=== PATIENT | male | born 1955 | race Caucasian/White ===

== ENCOUNTER 2018-12-03 07:00 | Day surgery (SDC) | payer OTHER ==
[~2018-12-03] VITALS: Ht 182.9 cm; Wt 97.5 kg
--- NOTE | 2018-12-03 09:02 | NUR ---
12/03/18 0902 Mago Adams 0856- PT ARRIVES TO PACU ALERT AND ORIENTED. PT REPORTS NO NAUSEA OR PAIN. RESP EVEN AND UNLABORED. OXYGEN SAT HIGH 90'S ON 2L VIA NC. 0902- OXYGEN TITRATED OFF. PT PASSING FLATUS.
--- NOTE | 2018-12-03 09:16 | NUR ---
PT ALERT, ORIENTED AND SUPPORTED BY HIS . PT SEEMED TO DEAL WITH PREP APPROPRIATELY.PT THANKED ME FOR COMING BY-EXTENDED A BLESSING AND WILL BE AVAILABLAE NEEDED
--- NOTE | 2018-12-04 14:35 | OR ---
[facility] [address], [place] [address] Signed DATE OF OPERATION: 12/03/2018 SURGEON: Joyce Gomez MD PREOPERATIVE DIAGNOSIS: Colon screening. POSTOPERATIVE DIAGNOSIS: Polyps x4. PROCEDURE: Total colonoscopy to cecum with cold morcellation polypectomy x3 and cold snare polypectomy x1. ANESTHESIA: Intravenous sedation, fentanyl 100 mcg, Versed 7 mg. INDICATION: This 63-year-old white man is a patient of Dr. Corrigan and known to me from the past. He last underwent screening colonoscopy in 2006. Colonoscopy at that time was normal. He has no symptoms of bleeding, diarrhea, or constipation, and no family history of colon cancer. He is admitted at this time to undergo colonoscopy. He understands the risks of bleeding, infection, and perforation. FINDINGS: The prep was excellent. Complete colonoscopy was undertaken to the cecum without question. Appendix and ileocecal valve were well identified. There was a small polyp of the cecum, which was excised with cold morcellation technique. Additionally, another polyp at the splenic flexure, another in the mid descending, and another in the sigmoid, all excised. The largest, which was still relatively small was in the sigmoid and was excised with cold snare polypectomy technique. The others were with cold morcellation technique. DESCRIPTION OF PROCEDURE: The patient was brought to the endoscopy suite and placed in lateral decubitus position, given intravenous sedation to the point of slurred speech and nystagmus. Digital rectal examination was normal. An Olympus video colonoscope was passed in the rectum and manipulated throughout the colon ultimately intubating the cecum itself. The ileocecal valve and appendiceal Electronically Signed By: JOYCE GOMEZ MD 12/04/18 1435 PATIENT NAME: KEKE YO OPERATIVE REPORT DATE OF : 53 REPORT #: [id number] PHYSICIAN: JOYCE GOMEZ MD PCP: ROMEL CORRIGAN MD REPORT IS CONFIDENTIAL AND NOT TO BE RELEASED WITHOUT AUTHORIZATION [facility] [address], [place] [address] Signed orifice were normal. A small polyp was noted at the cecum, was excised with cold morcellation technique. The scope was carefully withdrawn and examination throughout showed no sign of abnormality until the splenic flexure where another small polyp was noted. This may have been hyperplastic. It was excised with cold morcellation technique as well. Further withdrawal of scope showed a small polyp in the mid descending colon. This was excised with cold morcellation technique. Finally, at the 20 cm augusto, was a somewhat larger polyp, more likely adenomatous. Narrow band imaging showed this to be likely. This was excised with cold snare technique. Further withdrawal of scope showed no other abnormality. Retroflexed view of the rectum was normal. Scope was removed. The patient was taken to recovery room in good condition. CONCLUDING DIAGNOSIS: Polyps x4. PLAN: If adenomas were identified, repeat colonoscopy in 3 years. If they are all hyperplastic, 7 years. Maintain high-fiber diet otherwise. He will return to the ongoing care of Dr. Corrigan. MD TAMMY Lopez/GITA /[id number] cc: Romel Corrigan MD Copies: ROMEL CORRIGAN MD ~ Electronically Signed By: JOYCE GOMEZ MD 12/04/18 1435 PATIENT NAME: SANAZKEKE OPERATIVE REPORT DATE OF : 53 REPORT #: [id number] PHYSICIAN: JOYCE GOMEZ MD PCP: ROMEL CORRIGAN MD REPORT IS CONFIDENTIAL AND NOT TO BE RELEASED WITHOUT AUTHORIZATION
--- NOTE | 2018-12-05 16:03 | PATH ---
[facility] [address], [place] [address] Signed SPECIMEN(S): A CECAL POLYP SPECIMEN(S): B SPLENIC FLEXURE POLYP SPECIMEN(S): C DESCENDING POLYP AT 40 CM SPECIMEN(S): D COLON POLYP AT 15 CM SPECIMEN SOURCE: A. CECAL POLYP B. SPLENIC FLEXURE POLYP C. DESCENDING POLYP AT 40 CM D. COLON POLYP AT 15 CM CLINICAL HISTORY: Preop: Screening. Postop: Polyps x4. MICROSCOPIC DESCRIPTION: A: There is a single old appearing caseated granuloma in the submucosa. Stains for acid fast bacilli (AFB) and GMS are obtained, along with appropriately positive controls, and are negative for the presence of AFB and fungal elements respectively. The biopsy is otherwise unremarkable. No adenomatous or hyperplastic change is seen. B, C, D. Histologic sections of all submitted blocks are examined by light microscopy. These findings, together with the gross examination, support the pathologic diagnosis. FINAL PATHOLOGIC DIAGNOSIS: A. Mucosa, cecum, biopsy: - Submucosal caseated granuloma (See comment). - Negative for AFB and fungal elements by stain. - No other [id number] pathologic diagnosis. B. Mucosa, colon, splenic flexure, biopsy: - Tubular adenoma. C. Mucosa, descending colon at 40 cm, biopsy: - Tubular adenoma. D. Mucosa, colon at 15 cm, biopsy: - Tubular adenoma. COMMENT: A No obvious etiology for the granuloma is seen here. Correlation with history and other clinical factors suggested. LJA:[id number]:[id number] GROSS DESCRIPTION: PATIENT NAME: KEKE YO PATHOLOGY DATE OF : 53 REPORT #: [id number] PHYSICIAN: ENEIDA PATHOLOGY PCP: ROMEL FLORES MD REPORT IS CONFIDENTIAL AND NOT TO BE RELEASED WITHOUT AUTHORIZATION [facility] [address], [place] [address] Signed Four specimens are received in four containers, labeled "RL." A. The specimen, labeled "RL, cecal polyp," is received in formalin and consists of a single 0.2 cm ramso fragment. Specimen is entirely submitted in cassette (A1). B. The specimen, labeled "RL, splenic flexure polyp," is received in formalin and consists of two, 0.2 and 0.3 cm ramos-brown tissue fragments. Specimen is entirely submitted in cassette (B1). C. The specimen, labeled "RL, left colon polyp at 40 cm," is received in formalin and consists of two ramos tissue fragments both measuring 0.2 cm. Specimen is entirely submitted in cassette (C1). D. The specimen, labeled "RL, colon polyp at 15 cm," is received in formalin and consists of a single 0.2 cm ramos-brown polypoid fragment. Specimen is entirely submitted in cassette (D1). AM (under the direct supervision of a pathologist) The Gross Description was prepared using a voice recognition system. The report was reviewed for accuracy; however, sound-alike word errors, addition and/or deletions may occur. If there is any question about this report, please contact Client Services. PERFORMING LABORATORY: The technical component was performed by [employer], [address] [place] [id number] (Dragline Operator: Janett Zhou MD; CLIA# [id number]). [facility], [address] [address] (Dragline Operator: Jonathan Churchill MD; CLIA# [id number]). Diagnostician: Jonathan Churchill MD Pathologist Electronically Signed 12/05/2018 Copies: ~ PATIENT NAME: SANAZKEKE Rocio PATHOLOGY DATE OF : 53 REPORT #: [id number] PHYSICIAN: ENEIDA PATHOLOGY PCP: ROMEL FLORES MD REPORT IS CONFIDENTIAL AND NOT TO BE RELEASED WITHOUT AUTHORIZATION
== END 2018-12-03 09:35 | disposition home or self-care (01) ==
LOC: OPS 07:00 → DS 07:00 → OPS 08:30
PROVIDERS: Surgery
PROC: 0DBM8ZZ Excision of Descending Colon, Via Natural or Artificial Opening Endoscopic (ICD-10-PCS; 2018-12-03)
PROC: 0DBL8ZZ Excision of Transverse Colon, Via Natural or Artificial Opening Endoscopic (ICD-10-PCS; 2018-12-03)
PROC: 0DBE8ZZ Excision of Large Intestine, Via Natural or Artificial Opening Endoscopic (ICD-10-PCS; 2018-12-03)
PROC: 0DBH8ZZ Excision of Cecum, Via Natural or Artificial Opening Endoscopic (ICD-10-PCS; principal; 2018-12-03 08:30)
DX: Z12.11 Encounter for screening for malignant neoplasm of colon (principal); D12.3 Benign neoplasm of transverse colon; D12.4 Benign neoplasm of descending colon; D12.6 Benign neoplasm of colon, unspecified; K63.89 Other specified diseases of intestine; I10 Essential (primary) hypertension
CPT/HCPCS: 99153; G0500; J0690; J2250; J3010; J7121